=== PATIENT | male | born 1975 | race Two or more races ===

== ENCOUNTER 2023-06-15 21:20 | Emergency (ER) | payer OTHER ==
[~2023-06-15] VITALS: Ht 175.3 cm; Wt 110.0 kg
[2023-06-15 23:14] VITALS: BP 157/87; PULSE 102; RESP 18; TEMP 99.8; O2SAT 99
[2023-06-16 00:48] LABS: Rapid Influenza A Negative (Negative)
[2023-06-16 00:51] LABS: Rapid Influenza B Positive (Negative); Rapid Strep A Screen-Throat Positive
[2023-06-16 00:52] LABS: COVID19 ANTIGEN SOFIA FIA NEGATIVE (NEGATIVE)
[2023-06-16] MEDS ORDERED: PENICILLIN G BENZ 600000 UNIT/ML 1ML SYRG IM ONE ×2 (01:00→01:30)
== END 2023-06-16 02:04 ==
LOC: ER 21:20 → EDBD 21:20 → EEVIPCON 21:20 → ER 06-16 01:40
DX: A49.1 Streptococcal infection, unspecified site (principal); J10.1 Influenza due to other identified influenza virus with other respiratory manifestations; E11.9 Type 2 diabetes mellitus without complications; Z20.822 Contact with and (suspected) exposure to COVID-19
CPT/HCPCS: 36415; 71045; 87426; 87804; 87880; 99284; J0561